=== PATIENT | female | born 1935 | race Caucasian/White ===

== ENCOUNTER 2017-06-14 11:16 | Observation (INO) ==
[2017-06-14] MEDS ORDERED: 0.9 % Sodium Chloride 1,000 ML IVC ONE (11:32)
[2017-06-14] MEDS ORDERED: Ondansetron 4 MG/2 ML VIAL IVP ONE (11:32)
--- NOTE | 2017-06-14 11:36 | Emergency Department Note ---
Disposition Clinical Impression: Influenza A, Weakness Hypertension Qualifiers: Hypertension type: unspecified Qualified Code(s): I10 - Essential (primary) hypertension Disposition: Admitted As Inpatient Condition: Fair Referrals: Sha Clement Jr, MD [Primary Care Provider] - Forms: ED Satisfaction Letter Time of Disposition: 12:28 General Adult HPI - General Chief complaint: ED Nausea/Vomiting/Diarrhea Stated complaint: +flu, nausea Time Seen by Provider: 06/14/17 11:23 Source: patient Mode of arrival: ambulatory Limitations: no limitations Nursing Notes Reviewed: Yes Vital Signs Reviewed: Yes - History of Present Illness HPI Narrative: 82-year-old female with a history of hypertension presents for evaluation of a positive flu illness. Patient states symptom onset was 5-6 days ago. At that time the patient was evaluated in urgent care and was diagnosed with sinusitis and discharged with Keflex. Patient took a couple days worth of medications but did not improve one pack to the urgent care and was ultimately diagnosed with influenza A. At that time the patient was started on Tamiflu as well as Tessalon Perles. Patient states she has had chills, nonproductive cough, weakness with nausea vomiting diarrhea. Patient states that she does live alone by herself. Patient's was recently hospitalized. Patient states she is typically very active but has been generally weak with decreased oral intake. Patient denies any abdominal pain. Patient had her gallbladder removed. Patient notes that the diarrhea and vomiting is nonbloody. Pain Scale: 0 - Related Data Home Medications Medication Instructions Recorded Confirmed Metoprolol XL (24 HR) Succ [Toprol 50 mg PO BID 06/14/17 06/14/17 XL] Multivit-Min/FA/Lycopen/Lutein 1 tab PO DAILY 06/14/17 06/14/17 [Centrum Silver Tablet] Simvastatin [Zocor] 20 mg PO DAILY 06/14/17 06/14/17 metFORMIN [Glucophage] 500 mg PO DAILY 06/14/17 06/14/17 Previous Rx's Medication Instructions Recorded Acetaminophen [Tylenol] 500 mg PO Q6HR PRN #20 tablet 06/12/17 Benzonatate [Tessalon] 200 mg PO TID PRN #20 capsule 06/12/17 Oseltamivir [Tamiflu] 75 mg PO BID #10 capsule 06/12/17 Allergies Allergy/AdvReac Type Severity Reaction Status Date / Time prochlorperazine Allergy Flushing Verified 06/14/17 11:29 [From Compazine] Streptomycin Allergy Hives Verified 06/14/17 11:29 cephalexin [From Keflex] AdvReac Vomiting Verified 06/14/17 11:29 Penicillins AdvReac Hives Verified 06/14/17 11:29 All systems ED: reviewed and negative except as stated. Constitutional: Reports: chills Cardiovascular: Denies: chest pain Respiratory: Reports: cough, dyspnea. Denies: sputum production Gastrointestinal: Reports: nausea, vomiting, diarrhea. Denies: abdominal pain Past Medical History - Past Medical History Source: patient Medical history: Reports: diabetes, hypertension - Social History Smoking Status: Never smoker Smokeless Tobacco Status: No Alcohol use: Reports: none Drug use: Reports: none Physical Exam - General Limitations: no limitations General appearance: alert, in no apparent distress - Head Head exam: atraumatic, normocephalic, normal inspection - Eye Eye exam: Present: normal appearance, PERRL, EOMI - ENT ENT exam: normal exam, normal oropharynx, mucous membranes moist - Neck Neck exam: Present: normal inspection - Chest Chest inspection: Present: normal inspection, symmetric chest wall rise - Respiratory Respiratory exam: Present: normal lung sounds bilaterally. Absent: respiratory distress - Cardiovascular Cardiovascular exam: Present: regular rate, normal rhythm. Absent: systolic murmur - Abdominal Exam Abdominal exam: Present: soft, Non-Tender - Extremities Exam Extremities exam: Present: normal inspection. Absent: pedal edema - Expanded Lower Extremity Exam Neurovascular/Tendon exam: Present: normal capillary refill - Neurological Exam Neurological exam: Present: alert, oriented X3, CN II-XII intact - Skin Skin exam: Present: warm, dry, intact, normal color Course Course Narrative: Patient appears in no acute distress. Patient vitals reviewed does show that she is initially hypertensive which has been gradually improving during her ED course. Patient does have a confirmed influenza positive test obtained couple days ago. Patient did not take her Tamiflu earlier today. Patient will get basic labs, screening cardiopulmonary valuation with EKG chest x-ray troponin. Patient also gets symptomatic IV fluids and antiemetics. Disposition likely admission. - Reevaluation(s) Reevaluation #1: Patient seen and examined. Patient appears to be in no acute distress. However the patient does appear generally weak. Patient states she does live alone at home. Patient having chills and feels that she cannot take care of herself at home. Given this and aerated patient will be admitted to the hospital service for further evaluation and monitoring. Patient's chest x-ray was unremarkable however given the positive influenza concerns of possible worsening disease the patient was covered with doxycycline. Time: 12:29 Vital Signs Temperature 97.7 F 06/14/17 11:16 Pulse Rate 72 06/14/17 11:16 Respiratory Rate 18 06/14/17 11:16 Blood Pressure 200/110 06/14/17 11:16 O2 Sat by Pulse Oximetry 97 06/14/17 11:16 Temperature 97.7 F 06/14/17 11:16 Pulse Rate 77 06/14/17 12:31 Respiratory Rate 20 06/14/17 12:31 Blood Pressure 190/91 06/14/17 12:31 O2 Sat by Pulse Oximetry 98 06/14/17 12:31 Oxygen Delivery Oxygen Delivery Room Air Medical Decision Making - MDM Narrative Medical decision making narrative: 82 yo female present for evaluation of positive fluid as well as weakness. Patient's symptoms have been the past 5-6 days. Over the time course the patient has developed diarrhea and nausea vomiting. Patient felt that she was dehydrated with decreased by mouth intake. The patient's ED course is been uneventful. Patient received a chest x-ray did not show any acute abnormalities however given the patient's positive influenza swab as well as possible worsening symptoms the patient was covered for possible superimposed bacterial infection. Patient labs reviewed were essentially unremarkable. Patient's urine also shows no signs of infection. Given the patient's age as well as worsening symptoms and the fact that she lives alone at home by herself the patient felt that she cannot long no longer take care of herself at home. Patient will be admitted to the hospital service for further evaluation and monitoring. Patient's abdominal exam is been unremarkable. Patient does not have a gallbladder. Given the fact that the patient has not been complaining of abdominal pain CT scan the abdomen was not ordered in the emergent department. - Lab Data Lab results reviewed: Yes I reviewed the patient's lab results. Result diagrams: 06/14/17 11:48 06/14/17 11:48 Lab Results 06/14/17 06/14/17 06/14/17 Range/Units 11:45 11:48 11:48 WBC 4.6 (4.3-11.1) K/mcL RBC 4.57 (3.82-4.97) M/mcL Hgb 13.7 (11.5-15.4) g/dL Hct 42.3 (35.3-44.9) % MCV 92.6 (83.0-100.0) fL MCH 30.0 (28.0-33.3) pg MCHC 32.4 (31.6-35.5) g/dL RDW 11.9 (11.5-14.5) % Plt Count 219 (140-400) K/mcL MPV 10.3 (9.4-12.4) fL Immature Gran % 0.4 (0-4) % Seg Neutrophils % 60.2 % Lymphocytes % 31.4 % Monocytes % 7.6 % Eosinophils % 0.2 % Basophils % 0.2 % Neutrophils # 2.8 (1.6-8.9) K/mcL Lymphocytes # 1.5 (0.6-4.6) K/mcL Monocytes # 0.4 (0.0-1.3) K/mcL Eosinophils # 0.0 (0.0-0.6) K/mcL Basophils # 0.0 (0.0-0.2) K/mcL Sodium 138 (136-145) mEq/L Potassium 3.8 (3.5-5.1) mEq/L Chloride 100 (98-107) mEq/L Carbon Dioxide 29 (23-29) mEq/L BUN 14 (8-23) mg/dL Creatinine 0.86 (0.60-1.20) mg/dL Est GFR ( Amer) > 60 (> 60) Est GFR (Non-Af Amer) > 60 (> 60) BUN/Creatinine Ratio 16 (6-26) Glucose 201 H (70-105) mg/dL Calculated Osmolality 292 (280-300) Calcium 9.5 (8.6-10.3) mg/dL Magnesium 1.8 (1.6-2.6) mg/dL Total Bilirubin 0.4 (0.3-1.0) mg/dL AST 24 (13-39) Units/L ALT 20 (7-52) Units/L Alkaline Phosphatase 53 (34-104) Units/L Troponin I < 0.03 (< 0.04) ng/mL Serum Total Protein 7.5 (6.4-8.9) g/dL Albumin 4.2 (3.5-5.7) g/dL Globulin 3.3 (2.4-3.5) g/dL Albumin/Globulin Ratio 1.3 (1.1-2.2) Urine Color Yellow (Yellow) Urine Clarity Clear (Clear) Urine pH 5.5 (5.0-8.0) pH Units Ur Specific [place] > 1.030 H (1.010-1.025) Urine Protein Trace (Neg-Trace) mg/dL Urine Glucose (UA) Normal (Normal) mg/dL Urine Ketones Negative (Negative) mg/dL Urine Blood Negative (Negative) Urine Nitrite Negative (Negative) Urine Bilirubin Negative (Negative) Urine Urobilinogen Normal (Normal) mg/dL Ur Leukocyte Esterase Negative (Negative) Urine Microscopic RBC 5-15 H (0-3) per hpf Urine Microscopic WBC 0-3 (0-3) per hpf Ur Squamous Epith Cells Many H (None-Few) per lpf Urine Bacteria None Seen (None-Few) per hpf Hyaline Casts None Seen (None-Few) per lpf Ur Culture Indicated? NO (NO) - Radiology Data Radiology results reviewed: Yes I reviewed the patient's radiology results. Chest X-Ray 06/14/17 11:33 IMPRESSION: No evidence of pneumonia D/ / Keyshawn Jimenez MD / Keyshawn Jimenez MD Interpreting Provider: Keyshawn Jimenez MD - EKG Data EKG #1 EKG attestation: Yes I reviewed and interpreted this EKG. EKG shows normal: sinus rhythm Rate: normal Rhythm: NSR [place]/QRS: left axis deviation T wave inversions noted in: II, III, v1, v2 (flattened), v3, v4 Interpretation: no acute changes, unchanged when compared to prior tracing (date ), nonspecific ST-T wave changes S.B.A.R. - S.B.A.R. Situation: Demographics Background: Presenting Complaint Assessment: Vital Signs, Course and respsone to treatment, Patient/Family Expectation Recommendation: Barrier(s) to disposition, Recommendation based on pending studies, treatments, or consults Dayron Report Given to: Hospitalist Dayron Repor Time: 12:39
[2017-06-14 11:56] LABS: Bilirubin,Urine Negative (Negative); Blood,Urine Negative (Negative); Clarity,Urine Clear (Clear); Color,Urine Yellow (Yellow); Glucose,Urine (UA) Normal (Normal); Ketones,Urine Negative (Negative); Leukocyte Esterase,Urine Negative (Negative); Nitrite,Urine Negative (Negative); PH,Urine 5.5 pH Units (5.0-8.0); Protein,Urine Trace mg/dL (Neg-Trace); Specific Gravity,Urine > 1.030 (1.010-1.025); Urobilinogen,Urine Normal (Normal)
[2017-06-14 11:59] LABS: Basophils % 0.2 %; Eosinophils % 0.2 %; Hematocrit 42.3 % (35.3-44.9); Hemoglobin 13.7 g/dL (11.5-15.4); Immature Granulocytes % 0.4 % (0-4); Lymphocytes # 1.5 K/mcL (0.6-4.6); Lymphocytes % 31.4 %; Mean Corpuscular HGB Conc 32.4 g/dL (31.6-35.5); Mean Corpuscular Volume 92.6 fL (83.0-100.0); Mean Platelet Volume 10.3 fL (9.4-12.4); Monocytes # 0.4 K/mcL (0.0-1.3); Monocytes % 7.6 %; Neutrophils # 2.8 K/mcL (1.6-8.9); Platelet Count 219 K/mcL (140-400); Red Blood Count 4.57 M/mcL (3.82-4.97); Red Cell Distribution Width 11.9 % (11.5-14.5); Segmented Neutrophils % 60.2 %
[2017-06-14 11:59] LABS: Bacteria,Urine None Seen per hpf (None-Few); Hyaline Casts,Urine None Seen per lpf (None-Few); Squamous Epithelial Cell,Urine Many per lpf (None-Few); WBC,Urine 0-3 per hpf (0-3)
[2017-06-14] MEDS ORDERED: Doxycycline 100 MG in 0.9 % Sodium Chloride Mini Bag 100 ML IVPB ONE (12:12)
[2017-06-14 12:17] LABS: Troponin I < 0.03 ng/mL (< 0.04)
[2017-06-14 12:22] LABS: Alanine Aminotransferase 20 Units/L (7-52); Albumin 4.2 g/dL (3.5-5.7); Albumin/Globulin Ratio 1.3 (1.1-2.2); Alkaline Phosphatase 53 Units/L (34-104); Aspartate Amino Transferase 24 Units/L (13-39); BUN/Creatinine Ratio 16 (6-26); Bilirubin,Total 0.4 mg/dL (0.3-1.0); Blood Urea Nitrogen 14 mg/dL (8-23); Calcium 9.5 mg/dL (8.6-10.3); Carbon Dioxide 29 mEq/L (23-29); Chloride 100 mEq/L (98-107); Globulin 3.3 g/dL (2.4-3.5); Glucose 201 mg/dL (70-105); Magnesium 1.8 mg/dL (1.6-2.6); Osmolality,Calculated 292 (280-300); Potassium 3.8 mEq/L (3.5-5.1); Sodium 138 mEq/L (136-145); Total Protein 7.5 g/dL (6.4-8.9); eGFR For African Americans > 60 (> 60); eGFR For Non-African Americans > 60 (> 60)
--- NOTE | 2017-06-14 12:40 | Emergency Department Note ---
START Narrative - START START: I examined this patient and my medical decision-making was reviewed with the Resident Physician. I agree with the documented findings, disposition and treatment plan as described except to the extent set forth below. 82 year old female presents to the ED with complaints of weakness and most recently tested postiive for the flu. Patient states that she has also been exerpecingin icnreased nausea/vomiting, and diarrhea and chills at home. and is Hypertensive and IVF resusitation she still feels realatively weak. Charli will be admitted to [facility].
[2017-06-14] MEDS ORDERED: Benzonatate 100 MG CAPSULE PO PRN (13:32)
[2017-06-14] MEDS ORDERED: *HR* Dextrose 50 % in Water (Syg) 50 ML SYRINGE IVP PRN (13:33)
[2017-06-14] MEDS ORDERED: Naloxone 0.4 MG/ML INJ IVP PRN (13:33)
[2017-06-14] MEDS ORDERED: Dextrose Gel 15 GM/37.5 ML TUBE PO PRN ×2 (13:33)
[2017-06-14] MEDS ORDERED: D5% in Water 1,000 ML IVC PRN (13:33)
--- NOTE | 2017-06-14 13:38 | Internal Med History&Physical ---
<Fidencio Vaughan J - Last Filed: 06/14/17 13:35> Date of Encounter: 06/14/17 Time of Encounter: 13:35 Assessment and Plan (1) Influenza A Current visit: Yes Status: Acute symptomatic treatment -Tylenol for pain and fever -IVF 0.9% NS at 75ml/hr -antiemetics -tessalon pearles -continue Tamiflu -tele, spo2 monitoring -CBC, BMP in am (2) Hypertensive urgency Current visit: Yes Status: Acute H/O HTN. Is taking BB at home, however, has been vomiting -resume BB -IV hydralazine 10mg Q6HR PRN for SBP greater than 160 (3) Nausea & vomiting Current visit: Yes Status: Acute antiemetics IVF 0.9% NS at 75ml/hr Qualifiers: Vomiting type: unspecified Vomiting Intractability: unspecified Qualified Code(s): R11.2 - Nausea with vomiting, unspecified (4) Sinusitis Current visit: Yes Status: Acute symptom management. Like viral sinusitis, avoid ABX for now Qualifiers: Sinusitis location: maxillary Chronicity: acute Recurrence: not specified as recurrent Qualified Code(s): J01.00 - Acute maxillary sinusitis, unspecified (5) DM (diabetes mellitus) Current visit: Yes Status: Acute Sliding scale insulin coverage Qualifiers: Diabetes mellitus type: type 2 Diabetes mellitus retirement insulin use: without retirement use Diabetes mellitus complication status: without complication Qualified Code(s): E11.9 - Type 2 diabetes mellitus without complications (6) Weakness Current visit: Yes Status: Acute (7) DVT prophylaxis Current visit: Yes Status: Acute Early ambulation Internal Medicine - H&P: HPI Chief complaint: generalized weakness, fatigue, N/V, flu-A, HTN urgency Admitted From: Home Plans for Post Hospital Care: Home History of present illness: Ms. Balderas is a 82 year old female with a PMH of DM II and HTN. She presents to [facility] today with weakness, fatigue, cough, congestion, intermittent N/V and HTN. She reports that her symptoms began this past Friday. She went to urgent care and was diagnosed with sinusitis and sent home with Keflex. However, she reports that by her symptoms were progressing and she returned and was found to be positive for influenza A. She was then sent home on Tamiflu. She is stating that the symptoms are getting worse and is reporting a decrease in oral intake, chills, a nonproductive cough, weakness, fatigue, nausea, and vomiting. While in the ED she was found to be hypertensive with SBP in the 190' s. She denies missing any medication doses but does admit to intermittent vomiting. All other workup was unremarkable. D/T continued HTN urgency and worsening influenza she is being admitted for further workup and treatment. Past Med Surg Social Fam HX - Past Medical History Medical history: diabetes, hypertension - Social History Smoking Status: Never smoker Smokeless Tobacco Status: No Alcohol use: none Drug use: none - Additional Family History Additional family history: noncontributory Internal Medicine - H&P: Meds Acetaminophen [Tylenol] 500 mg PO Q6HR PRN #20 tablet 06/12/17 [Rx] Benzonatate [Tessalon] 200 mg PO TID PRN #20 capsule 06/12/17 [Rx] Oseltamivir [Tamiflu] 75 mg PO BID #10 capsule 06/12/17 [Rx] Metoprolol XL (24 HR) Succ [Toprol XL] 50 mg PO BID 06/14/17 [History] Multivit-Min/FA/Lycopen/Lutein [Centrum Silver Tablet] 1 tab PO DAILY 06/14/17 [ History] Simvastatin [Zocor] 20 mg PO DAILY 06/14/17 [History] metFORMIN [Glucophage] 500 mg PO DAILY 06/14/17 [History] 3 Allergy/AdvReac Type Severity Reaction Status Date / Time prochlorperazine Allergy Flushing Verified 06/14/17 11:29 [From Compazine] Streptomycin Allergy Hives Verified 06/14/17 11:29 cephalexin [From Keflex] AdvReac Vomiting Verified 06/14/17 11:29 Penicillins AdvReac Hives Verified 06/14/17 11:29 All Systems PM: A 10-system review of systems was performed and is negative for pertinent findings except as documented above in the HPI. - Constitutional Constitutional: chills, fatigue, weakness, no fever(s), no night sweats - EENT Nose, mouth and throat: nasal congestion, nasal discharge, post-nasal drip, sinus pressure - Cardiovascular Cardiovascular ROS IM: no chest pain, no diaphoresis, no dyspnea, no edema, no lightheadedness, no palpitations, no syncope - Respiratory Respiratory: cough, chest congestion, no dyspnea, no hemoptysis, no dyspnea on exertion, no wheezing, no pain on inspiration, no excessive phlegm production, no change in phlegm color, no pain with cough - Gastrointestinal Gastrointestinal: nausea, vomiting (intermittenty), no abdominal pain, no constipation, no diarrhea - Genitourinary Genitourinary: no change in urinary stream, no dysuria, no flank pain, no hematuria - Musculoskeletal Musculoskeletal ROS IM: no numbness, no tingling - Integumentary Integumentary IM: no rash, no unusual bruising - Neurological Neurological ROS: no confusion, no convulsions, no focal weakness, no numbness, no tingling, no tremor(s) - Constitutional Vitals: Temp Pulse Resp BP Pulse Ox 97.7 F 77 20 190/91 98 06/14/17 11:16 06/14/17 12:31 06/14/17 12:31 06/14/17 12:31 06/14/17 12:31 General appearance: Present: cooperative, A&O X 3, no acute distress, answers questions appropriately - Head Head exam: Present: atraumatic, normocephalic - Eye Eye exam: Present: PERRL, conjuntiva pink, sclera anicteric Pupils: Present: PERRL - Neck Neck exam general surgery: Present: supple, trachea midline. Absent: lymphadenopathy - Respiratory Respiratory exam: Present: CTAB. Absent: accessory muscle use, rales, rhonchi, wheezes - Cardiovascular Cardiovascular exam: Present: RRR, +S1, +S2. Absent: diastolic murmur, gallop, rubs, systolic murmur - GI/Abdominal GI/Abdominal exam: Present: normal bowel sounds, soft, no peritoneal signs. Absent: distended, tenderness - Extremities Exam Extremities exam: Present: warm, radial pulses palpable and symmetrical. Absent : calf tenderness, cyanotic, pedal edema - Neurological Exam Neurological exam: Present: CN II-XII intact, oriented X3, no focal deficits. Absent: pronater drift, facial droop, speech deficit - Skin Skin exam: Present: dry, intact Internal Med - H&P Results - Labs CBC & Chem 7: 06/14/17 11:48 06/14/17 11:48 - EKG Data EKG shows normal: sinus rhythm - EKG Data Prior EKG available for review: yes When compared to previous EKG: there is no significant change Interpretation IM: normal EKG EKG comments: Normal Sinus rhythm 67 no changes noted 06/14/17 13:38 - Impressions Impressions Chest X-Ray 06/14/17 11:33 IMPRESSION: No evidence of pneumonia D/ / Keyshawn Jimenez MD / Keyshawn Jimenez MD Interpreting Provider: Keyshawn Jimenez MD <Uriel Adan M - Last Filed: 06/14/17 14:29> Date of Encounter: 06/14/17 Internal Medicine - H&P: HPI History of present illness: Ms. Balderas is a 82 year old female All Systems PM: A 10-system review of systems was performed and is negative for pertinent findings except as documented above in the HPI. - Constitutional Vitals: Temp Pulse Resp BP Pulse Ox 97.7 F 77 20 190/91 98 06/14/17 11:16 06/14/17 12:31 06/14/17 12:31 06/14/17 12:31 06/14/17 12:31 Internal Med - H&P Results - Labs CBC & Chem 7: 06/14/17 11:48 06/14/17 11:48 - Attending Attestation I have personally performed a face to face evaluation on this patient. I have reviewed and agree with the care plan as written by Fidencio Vaughan NP. Patient with about 5-6 of flu like symptoms. Initially given keflex for sinusitis. 2 days after that she was diagnosed with the flu and started tamiflu. is actually hospitalized and patient is alone. feeling weak and can't support her own at home. BP is elevated here in the 190s systolic and 90s diastolic. Will admit and continue supportive care for the flu. Restart home meds for blood pressure control. Add PRN IV agents. PT/OT.
[2017-06-14] MEDS: Insulin LISPRO 300 UNITS/3 ML VIAL SQ SCH ×2 (16:59→21:01)
[2017-06-14] MEDS: Ondansetron 4 MG/2 ML VIAL IVP PRN (17:14)
[2017-06-14] MEDS: 0.9 % Sodium Chloride 1,000 ML IVC SCH (17:15)
[2017-06-14] MEDS: Metoprolol XL (24 HR) Succ 50 MG TAB.ER.24H PO SCH (20:51)
[2017-06-15] MEDS: 0.9 % Sodium Chloride 1,000 ML IVC SCH (05:47)
[2017-06-15 05:55] LABS: Hematocrit 35.7 % (35.3-44.9); Hemoglobin 11.8 g/dL (11.5-15.4); Mean Corpuscular HGB Conc 33.1 g/dL (31.6-35.5); Mean Corpuscular Hemoglobin 30.5 pg (28.0-33.3); Mean Corpuscular Volume 92.2 fL (83.0-100.0); Mean Platelet Volume 10.8 fL (9.4-12.4); Platelet Count 196 K/mcL (140-400); Red Blood Count 3.87 M/mcL (3.82-4.97); Red Cell Distribution Width 12.1 % (11.5-14.5)
[2017-06-15 06:16] LABS: BUN/Creatinine Ratio 15 (6-26); Blood Urea Nitrogen 11 mg/dL (8-23); Calcium 8.4 mg/dL (8.6-10.3); Carbon Dioxide 25 mEq/L (23-29); Chloride 107 mEq/L (98-107); Glucose 111 mg/dL (70-105); Osmolality,Calculated 286 (280-300); Potassium 3.6 mEq/L (3.5-5.1); Sodium 138 mEq/L (136-145); eGFR For African Americans > 60 (> 60); eGFR For Non-African Americans > 60 (> 60)
[2017-06-15] MEDS: Insulin LISPRO 300 UNITS/3 ML VIAL SQ SCH ×4 (08:23→21:11)
[2017-06-15] MEDS: Metoprolol XL (24 HR) Succ 50 MG TAB.ER.24H PO SCH ×2 (08:24→21:11)
[2017-06-15] MEDS: Ondansetron 4 MG/2 ML VIAL IVP PRN (08:24)
--- NOTE | 2017-06-15 15:10 | Internal Med Progress Note ---
Date of Encounter: 06/15/17 Time of Encounter: 15:07 - Assessment and plan (1) Hypertension Current Visit: Yes Status: Chronic Assessment and plan: continue home BB, BP stable Qualifiers: Hypertension type: essential hypertension Qualified Code(s): I10 - Essential (primary) hypertension (2) Hypertensive urgency Current Visit: Yes Status: Resolved (3) Influenza A Current Visit: Yes Status: Acute Assessment and plan: symptomatic treatment, tamiflu (4) Nausea & vomiting Current Visit: Yes Status: Acute Assessment and plan: Resolved, tolerating her diet, will DC IV fluids now and monitor labs in the morning Qualifiers: Vomiting type: unspecified Vomiting Intractability: unspecified Qualified Code(s): R11.2 - Nausea with vomiting, unspecified (5) Sinusitis Current Visit: Yes Status: Acute Assessment and plan: Likely viral in origin, will not use antibiotics at this time Qualifiers: Sinusitis location: maxillary Chronicity: acute Recurrence: not specified as recurrent Qualified Code(s): J01.00 - Acute maxillary sinusitis, unspecified (6) Weakness Current Visit: Yes Status: Acute Assessment and plan: Secondary to viral illness (7) DVT prophylaxis Current Visit: Yes Status: Acute Assessment and plan: ambulation, scds - Subjective Interval history: Resting in bed. Tolerating her diet. Slight nausea this morning. No chest pain, fever, chills, dizziness, abdominal pain or headache. - Constitutional Vitals: Temp Pulse Resp BP Pulse Ox 98.8 F 69 16 178/81 94 06/15/17 11:28 06/15/17 11:28 06/15/17 11:28 06/15/17 11:28 06/15/17 11:28 General appearance: Present: cooperative, A&O X 3, pleasant, no acute distress, answers questions appropriately - Head Head exam: Present: atraumatic, normocephalic - Eye Eye exam: Present: PERRL, conjuntiva pink, sclera anicteric Pupils: Present: PERRL - Neck Neck exam general surgery: Present: supple, trachea midline. Absent: lymphadenopathy - Respiratory Respiratory exam: Present: CTAB. Absent: accessory muscle use, rales, rhonchi, wheezes - Cardiovascular Cardiovascular exam: Present: RRR, +S1, +S2. Absent: diastolic murmur, gallop, rubs, systolic murmur - GI/Abdominal GI/Abdominal exam: Present: normal bowel sounds, soft, no peritoneal signs. Absent: distended, tenderness - Extremities Exam Extremities exam: Present: warm, radial pulses palpable and symmetrical. Absent : calf tenderness, cyanotic, pedal edema - Neurological Exam Neurological exam: Present: alert, CN II-XII intact, oriented X3, no focal deficits. Absent: pronater drift, facial droop, speech deficit - Skin Skin exam: Present: dry, intact, normal color, warm Additional comments: Many moles on her back Internal Medicine: Result - Labs CBC & Chem 7: 06/15/17 04:01 06/15/17 04:01 Labs: Short CBC 06/15/17 Range/Units 04:01 WBC 4.5 (4.3-11.1) K/mcL Hgb 11.8 D (11.5-15.4) g/dL Hct 35.7 (35.3-44.9) % Plt Count 196 (140-400) K/mcL BMP 06/15/17 04:01 Sodium 138 Potassium 3.6 Chloride 107 Carbon Dioxide 25 BUN 11 Creatinine 0.72 Glucose 111 H Calcium 8.4 L Consult Discharge Plan - Plan Referrals: Sha Clement Jr, MD [Primary Care Provider] -
[2017-06-15] MEDS: Oseltamivir Phosphate 30 MG CAPSULE PO SCH (21:11)
[2017-06-16 05:57] LABS: Hematocrit 37.6 % (35.3-44.9); Hemoglobin 12.3 g/dL (11.5-15.4); Mean Corpuscular HGB Conc 32.7 g/dL (31.6-35.5); Mean Corpuscular Hemoglobin 30.1 pg (28.0-33.3); Mean Corpuscular Volume 91.9 fL (83.0-100.0); Mean Platelet Volume 10.7 fL (9.4-12.4); Platelet Count 226 K/mcL (140-400); Red Blood Count 4.09 M/mcL (3.82-4.97); Red Cell Distribution Width 11.9 % (11.5-14.5)
[2017-06-16 07:10] VITALS: BP 156/77
[2017-06-16] MEDS: Insulin LISPRO 300 UNITS/3 ML VIAL SQ SCH (07:21)
[2017-06-16] MEDS: Oseltamivir Phosphate 30 MG CAPSULE PO SCH (08:15)
[2017-06-16] MEDS: Metoprolol XL (24 HR) Succ 50 MG TAB.ER.24H PO SCH (08:15)
[2017-06-16 09:26] LABS: BUN/Creatinine Ratio 14 (6-26); Blood Urea Nitrogen 10 mg/dL (8-23); Calcium 8.9 mg/dL (8.6-10.3); Carbon Dioxide 24 mEq/L (23-29); Chloride 104 mEq/L (98-107); Glucose 148 mg/dL (70-105); Osmolality,Calculated 288 (280-300); Potassium 3.9 mEq/L (3.5-5.1); Sodium 138 mEq/L (136-145); eGFR For African Americans > 60 (> 60); eGFR For Non-African Americans > 60 (> 60)
--- NOTE | 2017-06-16 10:18 | Discharge Summary ---
Date of Encounter: 06/16/17 Time of Encounter: 10:11 - Discharge Diagnosis (1) Hypertension Priority: Primary Status: Chronic Qualifiers: Hypertension type: essential hypertension Qualified Code(s): I10 - Essential (primary) hypertension (2) Hypertensive urgency Priority: Primary Status: Resolved (3) Influenza A Priority: Primary Status: Acute (4) Nausea & vomiting Priority: Primary Status: Resolved Qualifiers: Vomiting type: unspecified Vomiting Intractability: unspecified Qualified Code(s): R11.2 - Nausea with vomiting, unspecified (5) Sinusitis Priority: Primary Status: Acute Qualifiers: Sinusitis location: maxillary Chronicity: acute Recurrence: not specified as recurrent Qualified Code(s): J01.00 - Acute maxillary sinusitis, unspecified (6) Weakness Priority: Primary Status: Acute Hospital course: Ms. Balderas is a 82 year old female with a past medical history of diabetes type 2 and hypertension. She reported her symptoms began the previous Friday. She went to an urgent care and was diagnosed with sinusitis and sent home on Keflex. Her symptoms began progressing so she presented back to the urgent care for reevaluation on . She was nauseated and was found to be positive for influenza A. She was sent home on Tamiflu. The symptoms were continually getting worse with a decrease in oral intake, chills, nonproductive cough, weakness, fatigue, nausea and vomiting. She was unable to keep her medications down. She presented to [place] emergency room . She was found to be hypertensive with systolic blood pressure in the 190s, she denied missing any medications but had been intermittently vomiting. She was admitted for control of her blood pressure and further workup and treatment. Influenza A was symptomatic treatment, continue Tylenol for pain and fever, IV fluids at 75 mL any hour, anti-emetics, Tessalon Perles for the cough, continue the Tamiflu, telemetry monitoring and pulse ox monitoring. The patient is now on room air Monitor lab work Hypertensive urgency resolved after the vomiting was controlled and her beta quincy was resumed. She also received some IV hydralazine for systolic blood pressure greater than 160. She does have a history of essential hypertension Nausea and vomiting are resolved with antibiotics, she is tolerating a diet so her IV fluids were DC'd. She was found to have sinusitis likely viral in origin so no antibiotics at this time. Continue symptom management She is a diabetic mellitus type II and will resume her home regime on discharge. Her sugars were covered here with a sliding scale insulin. The weakness is multifactorial likely secondary to a viral illness that has been dragging on. She feels much better today and feels she is ready to go home. She is very concerned with her . Of note her is hospitalized here on the same floor with mental status changes, weakness, pneumonia and a UTI. Placement is pending for rehabilitation. Discharge discussed with: patient, family, nurse - Time Spent with Patient Total time spent providing and/or coordinating discharge services: Less than 30 minutes - Discharge Medications Home Medications: Acetaminophen [Tylenol] 500 mg PO Q6HR PRN #20 tablet 06/12/17 [Rx] Benzonatate [Tessalon] 200 mg PO TID PRN #20 capsule 06/12/17 [Rx] Oseltamivir [Tamiflu] 75 mg PO BID #10 capsule 06/12/17 [Rx] Metoprolol XL (24 HR) Succ [Toprol Xl] 50 mg PO BID 06/14/17 [History] Multivit-Min/FA/Lycopen/Lutein [Centrum Silver Tablet] 1 tab PO DAILY 06/14/17 [ History] Simvastatin [Zocor] 20 mg PO DAILY 06/14/17 [History] metFORMIN [Glucophage] 500 mg PO DAILY 06/14/17 [History] Allergies/Adverse Reactions: 3 Allergy/AdvReac Type Severity Reaction Status Date / Time prochlorperazine Allergy Flushing Verified 06/14/17 11:29 [From Compazine] Streptomycin Allergy Hives Verified 06/14/17 11:29 cephalexin [From Keflex] AdvReac Vomiting Verified 06/14/17 11:29 Penicillins AdvReac Hives Verified 06/14/17 11:29 Date of admission: 06/14/17 12:45 Primary care physician: Sha Clement Jr, MD Discharging clinician: Lizzie Avila Anticipated date of discharge: 06/16/17 - Constitutional Vitals: Temp Pulse Resp BP Pulse Ox 98.5 F 90 15 156/77 95 06/16/17 07:08 06/16/17 07:08 06/16/17 07:08 06/16/17 07:08 06/16/17 07:08 General appearance: Present: cooperative, A&O X 3, pleasant, no acute distress, answers questions appropriately - Head Head exam: Present: atraumatic, normocephalic - Eye Eye exam: Present: PERRL, conjuntiva pink, sclera anicteric Pupils: Present: PERRL - Neck Neck exam general surgery: Present: supple, trachea midline. Absent: lymphadenopathy - Respiratory Respiratory exam: Present: CTAB. Absent: accessory muscle use, rales, rhonchi, wheezes - Cardiovascular Cardiovascular exam: Present: RRR, +S1, +S2. Absent: diastolic murmur, gallop, rubs, systolic murmur - GI/Abdominal GI/Abdominal exam: Present: normal bowel sounds, soft, no peritoneal signs. Absent: distended, tenderness - Extremities Exam Extremities exam: Present: warm, radial pulses palpable and symmetrical. Absent : calf tenderness, cyanotic, pedal edema - Neurological Exam Neurological exam: Present: alert, CN II-XII intact, oriented X3, no focal deficits, strengths equal and symetr throughout. Absent: pronater drift, facial droop, speech deficit - Skin Skin exam: Present: dry, intact, normal color, warm - Patient Status Disposition: Home, Self-Care Condition: Fair Functional capacity at discharge: independent ambulation Overall status at discharge: patient is progressing back to baseline - Discharge Instructions Follow Up With: Sha Clement Jr, MD [Primary Care Provider] - - Diet and Activity Activity: increase activity as tolerated Diet: advance to your usual diet, diabetic diet
--- NOTE | 2017-06-16 19:23 | Electrocardiograph Report ---
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
== END 2017-06-16 11:35 | disposition home or self-care (01) ==
LOC: 3BNU 11:16 → EMEROO 11:16 → 3BNU 13:28
PROVIDERS: ADMIT Family Medicine; ATTEND Registered Nurse